=== PATIENT | female | born 2000 | race Caucasian/White ===

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

== ENCOUNTER 2020-07-26 06:39 | Day surgery (SDC) | payer MEDICAID ==
[~2020-07-26] VITALS: Ht 160 cm; Wt 47.6 kg
--- NOTE | ~2020-07-26 | OP ---
PATIENT NAME: NANCY THOMAS MEDICAL RECORD: [id number] :00 LOCATION:[facility] ADMISSION DATE: SURGEON: JESU ALVARADO MD DATE OF OPERATION: 07/26/2020 PREOPERATIVE DIAGNOSIS: Chronic pharyngitis. POSTOPERATIVE DIAGNOSIS: Chronic pharyngitis. PROCEDURE: Tonsillectomy and adenoidectomy. SURGEON: Jesu Alvarado MD ANESTHESIA: General orotracheal. BLOOD LOSS: 2 mL. SPECIMENS: Right and left tonsil. COMPLICATIONS: None. DISPOSITION: Recovery, stable. PROCEDURE IN DETAIL: She was brought to the operating room and placed in supine position, sedated and intubated by anesthesia. Eyes taped, head was turned 90 degrees. Head drape was applied. She was positioned for tonsillectomy. Using a headlight, a Radha-Ronaldo mouth gag was carefully inserted and elevated on a towel on chest. The palate was examined and palpated, it was normal. Red rubber catheter was placed through the right side of the nose into the pharynx and grasped with tonsil clamp to retract the soft palate. Using a mirror, nasopharynx was examined. Suction cautery on a setting of 35 was used to ablate and suction the adenoid pad with no significant bleeding. The choanae and eustachian orifices were normal bilaterally. The red rubber catheter was let down and removed. The right tonsil was grasped at the superior pole with a straight Allis clamp. Spatula tip cautery on a setting of 9 was used to dissect out the tonsil along its capsule, preserving the anterior and posterior tonsillar pillar. The left tonsil was removed in the same fashion. Then, both sides of the nose were irrigated with saline. The pharynx was suctioned. Tonsillar fossae were agitated. Suction cautery on a setting of 18 was used to control minimal oozing. The Radha-Ronaldo mouth gag was let down and removed. She was awakened, extubated, and transported to recovery in good condition. No complications. TRANSINT:[id number] Voice Confirmation ID: [id number] DOCUMENT ID: [id number] JESU ALVARADO MD CC: [id number] DICTATION DATE: 07/26/20 1152 PHYSICAL THERAPIST CLINIC DIRECTOR: 07/26/20 1328 [facility] 07/26/20 [facility] [address] [place] [address]
[~2020-07-26 06:39] MED LIST: MACROBID100 MG PO; MIRALAX17 GM PO
[2020-07-26 07:22] LABS: HEMATOCRIT 40.9 % (36.0-48.0); HEMOGLOBIN 13.4 g/dL (12-16); MCH 29.6 pg (26.0-34.0); MCHC 32.7 g/dL (31.0-37.0); MCV 90.5 fL (80.0-100.0); MEAN PLATELET VOLUME 8.4 fL (7.4-10.4); RBC 4.52 10x6/uL (4.00-5.40); RDW 13.4 % (11.5-14.5); WBC 3.5 10x3/uL (4.8-10.8)
[2020-07-26 07:23] LABS: HCG SERUM NEGATIVE (NEGATIVE)
[2020-07-26 08:56] VITALS: BP 120/74; Ht 160 cm; Wt 47.6 kg
--- NOTE | 2020-07-26 09:11 | NUR ---
0910 PT HAS A LIFETIME POSITIVE FOR SUICIDE. PT STATES THAT SHE USE TO CUT HERSELF BUT HAS NOT DONE THIS FOR THE PAST 4 YEARS. SHE IS ACTIVELY SEEING A COUNSELOR TWICE A WEEK AND DECLINES BEING EVALUATED BY [facility] BEHAVIOR[facility] NURSE. PT STATES SHE KNOWS HOW TO SEEK HELP IN THE EVENT SHE FEELS SHE IS A DANGER TO HERSELF.
--- NOTE | 2020-07-26 10:35 | HP ---
PATIENT: NANCY THOMAS MEDICAL RECORD: [id number] ACCOUNT: [id number] LOCATION:[facility] : 00 ADMISSION DATE: 07/26/20 PCP: SILVIANO PEARL MD HISTORY AND PHYSICAL EXAMINATION PREOPERATIVE HISTORY AND PHYSICAL HISTORY OF PRESENT ILLNESS: Nancy is 19. She has had problems with chronic pharyngitis and adenotonsillar hypertrophy. She is admitted for tonsillectomy and adenoidectomy. PAST MEDICAL HISTORY: Otherwise negative. PAST SURGICAL HISTORY: None. CURRENT MEDICATIONS: None. ALLERGIES: No known drug allergies. PHYSICAL EXAMINATION: GENERAL: Demonstrates healthy appearing, developmentally normal. FACE: Normal symmetric, no lesions. EYES: Sclerae and conjunctivae are normal. EARS: Canals and TMs are normal. NOSE: No mass, polyps, or drainage. ORAL CAVITY AND OROPHARYNX: A 4+ tonsils, normal palate. NECK: No masses, no adenopathy. CHEST: Clear. CARDIOVASCULAR: Regular rate and rhythm, no murmur. EXTREMITIES: Normal. IMPRESSION: Chronic pharyngitis and adenotonsillar hypertrophy. PLAN: Tonsillectomy and adenoidectomy. TRANSINT:[id number] Voice Confirmation ID: [id number] DOCUMENT ID: [id number] JESU HUTCHINSON MD at 1035 CC: [id number] DICTATION DATE: 07/20/20 1346 PAYROLL COORDINATOR: 07/20/20 1458 [facility] [address] [place] [address]
--- NOTE | 2020-07-26 12:52 | NUR ---
1215 PT IS AWAKE AND DESIRES DC. IV DC'D WITH CATH INTACT, GETTING DRESSED 1230 DC INSTS. GIVEN, VOICED UNDERSTANDING, RX PROVIDED, RELEASED IN WC.
== END 2020-07-26 12:30 | disposition home or self-care (01) ==
LOC: D.OPS 06:39
PROVIDERS: Anesthesiology; ATTEND Otolaryngology
DX: J31.2 Chronic pharyngitis (principal); J35.3 Hypertrophy of tonsils with hypertrophy of adenoids